=== PATIENT | female | born 1985 | race Caucasian/White ===

== ENCOUNTER → 2018-10-09 | Outpatient (CLI) | payer BC ==
[2018-10-09 11:48] LABS: FREE T3 3.38 pg/mL (2.77-5.27); FREE T4 (FREE THYROXINE) 0.91 ng/dL (0.78-2.19)
[2018-10-09 12:02] LABS: THYROID STIMULATING HORMONE 5.81 uIU/mL (0.47-4.68)
== END ==
LOC: LAB 09:50
PROVIDERS: ATTEND Internal Medicine Geriatric Medicine
DX: I10 Essential (primary) hypertension (principal)
CPT/HCPCS: 36415; 82306; 84439; 84443; 84481; 84482; 86376

== ENCOUNTER → 2018-10-12 | Outpatient (CLI) | payer BC ==
--- NOTE | 2018-10-12 11:19 | RADIOLOGY REPORT (SQ) ---
EXAM DESCRIPTION: DUPLEX ART/VERONICA FLOW COMPLETE COMPLETED DATE/TIME: 10/12/2018 8:28 am REASON FOR STUDY: HTN (I10) I10 ESSENTIAL (PRIMARY) HYPERTENSION COMPARISON: None. TECHNIQUE: Realtime and static grayscale images acquired. Selected color Doppler, velocities and spe ctral images recorded. LIMITATIONS: None. FINDINGS: RIGHT KIDNEY: RENAL ARTERY VELOCITIES: 145 cm/sec. Segmental artery velocity 123 cm/sec. RENAL VEIN: Color doppler flow present, patent. VELOCITY RATIO: 1.34. Normal waveforms. KIDNEY: Normal size. No significant pathology. LEFT KIDNEY: RENAL ARTERY VELOCITIES: 92 cm/sec. Segmental artery velocity 115 cm/sec. RENAL VEIN: Color doppler flow present, patent. VELOCITY RATIO: 0.85. Normal waveforms. KIDNEY: Normal size. No significant pathology. BLADDER: Normal. OTHER: No other significant finding. IMPRESSION: NO DOPPLER EVIDENCE OF HEMODYNAMICALLY SIGNIFICANT RENAL ARTERY STENOSIS. COMMENT: NORMAL RENAL ARTERY/AORTA VELOCITY RATIO IS LESS THAN OR EQUAL TO 3.5. TECHNICAL DOCUMENTATION: JOB ID: [id number] [employer]- All Rights Reserved Reading location - IP/workstation name: [email or web address]
== END ==
LOC: RAD 07:21
PROVIDERS: ATTEND Internal Medicine Geriatric Medicine
DX: I10 Essential (primary) hypertension (principal)
CPT/HCPCS: 93975